=== PATIENT | female | born 1960 | race Caucasian/White ===

== ENCOUNTER 2021-07-15 12:50 | Inpatient (IN) | payer OTHER, BC ==
[2021-07-15] MEDS ORDERED: Ondansetron PF 4 MG/2 ML Vial ONE (13:14)
[2021-07-15] MEDS ORDERED: Morphine 4 MG/ML VIAL ONE (13:14)
[2021-07-15] MEDS ORDERED: Boostrix 0.5 ML (Tdap) VIAL ONE (13:14)
[2021-07-15 13:18] LABS: #Eosinphils 0.1 thou/uL (0.0-0.7); #Lymphocytes 1.3 thou/uL (1.20-3.40); #Monocytes 0.7 thou/uL (0.11-0.59); #Neutrophils 9.7 thou/uL (1.40-6.50); %Basophils 0.3 % (0.0-1.0); %Eosinophils 0.7 % (0.0-10.0); %Lymphocytes 10.9 % (21.0-51.0); %Monocytes 6.3 % (0.0-10.0); %Neutrophils 81.8 % (42.0-75.0); Hemoglobin 11.4 g/dL (12.0-16.0); Mean Corpuscular HGB CONC 33.3 g/dL (32.0-36.0); Mean Corpuscular Hemoglobin 30.7 pg (27.0-31.0); Mean Corpuscular Volume 92.2 fL (78.0-98.0); Mean Platelet Volume 6.4 fL (7.4-10.4); Platelet Count 312 thou/uL (130-400); RBC Distribution Width 12.2 % (11.5-14.5); White Blood Cell (WBC) Count 11.8 thou/uL (4.8-10.8)
[2021-07-15 13:33] LABS: ALT (SGPT) 46 U/L (8-55); AST (SGOT) 57 U/L (5-34); Albumin 3.5 g/dL (3.5-5.0); Alkaline Phosphatase 91 U/L (40-110); Anion Gap 14 mmol/L (10-20); BUN (Urea Nitrogen) 10 mg/dL (9.8-20.1); Bilirubin, Total 0.7 mg/dL (0.2-1.2); CK (CPK) 213 U/L (29-168); Calc. Creatinine Clearance 0 mL/min (70-130); Calcium 8.8 mg/dL (7.8-10.44); Carbon Dioxide 22 mmol/L (22-29); Chloride 100 mmol/L (98-107); Globulin 2.7 g/dL (2.4-3.5); Glucose 168 mg/dL (70-105); Lipase 49 U/L (8-78); Potassium 3.5 mmol/L (3.5-5.1); Protein, Total 6.2 g/dL (6.0-8.3); Sodium 132 mmol/L (136-145)
[2021-07-15] MEDS ORDERED: Lidocaine 1% PF 5 ML VIAL ONE (14:21)
[2021-07-15] MEDS ORDERED: CEFAZOLIN 2 GM VIAL ONE (15:21)
[2021-07-15] MEDS ORDERED: Iopamidol-370 76% 500 ML 1 ML ONE (15:21)
[2021-07-15] MEDS ORDERED: HYDROmorphone 0.5 MG/0.5 ML SYRINGE ONE (15:29)
[2021-07-15] MEDS ORDERED: Ondansetron PF 4 MG/2 ML Vial IVP PRN ×2 (15:30→15:31)
[2021-07-15] MEDS ORDERED: HYDROmorphone 0.5 MG/0.5 ML SYRINGE SLOW IVP SCH (15:30)
[2021-07-15] MEDS ORDERED: Ondansetron ODT 4 MG TAB SL PRN (15:30)
[2021-07-15] MEDS ORDERED: HYDROmorphone 10 mg/100 ml CADD IVPB PRN (15:31)
[2021-07-15] MEDS ORDERED: diphenhydrAMINE 50 MG/ML VIAL IVP PRN (15:31)
[2021-07-15] MEDS ORDERED: Naloxone HCl 0.4 mg/ml Vial IV PRN (15:31)
[2021-07-15] MEDS ORDERED: diphenhydrAMINE 50 MG/ML VIAL IM PRN (15:31)
[2021-07-15] MEDS ORDERED: diphenhydrAMINE 25 MG CAP PO PRN (15:31)
[2021-07-15] MEDS ORDERED: Promethazine HCl 25 MG/ML VIAL IM PRN (15:31)
[2021-07-15] MEDS ORDERED: Ketamine 50 MG/ML (10ML VIAL) ONE (15:39)
[2021-07-15] MEDS ORDERED: Communication Order-Pharmacy FS SCH (15:45)
[2021-07-15] MEDS ORDERED: hydrALAZINE 20 MG/ML VIAL SLOW IVP PRN (15:53)
[2021-07-15] MEDS ORDERED: CEFAZOLIN 2 GM in Sodium Chloride 0.9% 100 ML IVPB SCH (16:45)
[2021-07-15] MEDS ORDERED: Acetaminophen 500 MG TAB PO SCH (18:00)
[2021-07-15] MEDS: Ketorolac Tromethamine 30 MG/ML VIAL IVP SCH (18:24)
[2021-07-15] MEDS: Acetaminophen 500 MG TAB PO SCH (18:26)
[2021-07-15] MEDS: Sodium Chloride 0.9% 1,000 ML IV SCH (19:21)
[2021-07-15] MEDS: Famotidine/PF 20 mg/2ml Vial SLOW IVP SCH (21:21)
[2021-07-16 00:51] LABS: SARS-CoV-2 NAA Rapid Test Not Detected (NotDetected)
[2021-07-16] MEDS: Acetaminophen 500 MG TAB PO SCH ×4 (01:00→21:27)
[2021-07-16] MEDS: Sodium Chloride 0.9% 1,000 ML IV SCH ×3 (01:01→19:10)
[2021-07-16] MEDS: Ketorolac Tromethamine 30 MG/ML VIAL IVP SCH ×4 (01:01→21:27)
[2021-07-16] MEDS: Famotidine/PF 20 mg/2ml Vial SLOW IVP SCH (07:42)
[2021-07-16 07:47] LABS: #Eosinphils 0.1 thou/uL (0.0-0.7); #Monocytes 1.2 thou/uL (0.11-0.59); #Neutrophils 8.5 thou/uL (1.40-6.50); %Basophils 0.2 % (0.0-1.0); %Eosinophils 0.4 % (0.0-10.0); %Monocytes 9.9 % (0.0-10.0); %Neutrophils 72.4 % (42.0-75.0); Hemoglobin 10.4 g/dL (12.0-16.0); Mean Corpuscular HGB CONC 31.4 g/dL (32.0-36.0); Mean Corpuscular Hemoglobin 29.8 pg (27.0-31.0); Mean Corpuscular Volume 95.1 fL (78.0-98.0); Mean Platelet Volume 6.7 fL (7.4-10.4); Platelet Count 368 thou/uL (130-400); RBC Distribution Width 12.3 % (11.5-14.5); Red Blood Cell (RBC) Count 3.47 mill/uL (4.20-5.40); White Blood Cell (WBC) Count 11.7 thou/uL (4.8-10.8)
[2021-07-16] MEDS: Carvedilol 6.25 MG TAB PO SCH ×2 (08:58→21:29)
[2021-07-16] MEDS ORDERED: Non-Formulary Item 1 EACH (Venlafaxine Hcl [Venlafaxine Hcl Er] 150 MG Tab.Er.24) PO SCH (09:00)
[2021-07-16] MEDS ORDERED: Non-Formulary Item 1 EACH (Omeprazole [Omeprazole] 40 MG Capsule.Dr) PO SCH (09:00)
[2021-07-16 09:03] LABS: BUN (Urea Nitrogen) 20 mg/dL (9.8-20.1); Carbon Dioxide 24 mmol/L (22-29)
[2021-07-16] MEDS ORDERED: Sodium Chloride 0.9% 1,000 ML IV SCH (10:00)
[2021-07-16] MEDS ORDERED: traMADol HCl 50 MG TAB PO PRN (10:01)
[2021-07-16 10:34] LABS: Sodium 138 mmol/L (136-145)
[2021-07-16 10:35] LABS: Anion Gap 10 mmol/L (10-20); Chloride 111 mmol/L (98-107); Potassium 2.7 mmol/L (3.5-5.1)
[2021-07-16 10:36] LABS: Calc. Creatinine Clearance 67 mL/min (70-130); Glucose 113 mg/dL (70-105)
[2021-07-16 10:37] LABS: Calcium 6.5 mg/dL (7.8-10.44)
[2021-07-16] MEDS ORDERED: Potassium Phosphate 30 MMOL in Sodium Chloride 0.9% 250 ML 250 ML IVPB SCH (11:00)
[2021-07-16] MEDS: Amlodipine 5 MG TAB PO SCH (11:08)
[2021-07-16] MEDS: Senokot S 8.6-50 MG TAB PO SCH ×2 (11:09→21:29)
[2021-07-16] MEDS: Venlafaxine HCl XR 150 MG CAP PO SCH (11:09)
[2021-07-16] MEDS: Polyethylene Glycol 3350 17 GM Packet PO SCH (11:09)
[2021-07-16 11:33] LABS: Magnesium 1.5 mg/dL (1.6-2.6); Phosphorus 3.9 mg/dL (2.3-4.7)
[2021-07-16] MEDS ORDERED: traMADol HCl 50 MG TAB PO SCH (12:00)
[2021-07-16] MEDS ORDERED: fentaNYL Citrate/PF 100 MCG/2 ML SYRINGE ONE (16:21)
[2021-07-16] MEDS ORDERED: Bupivacaine PF 0.5% 30 ML VIAL ONE (16:25)
[2021-07-16] MEDS ORDERED: EPINEPHrine 1 MG/ML AMP ONE (16:25)
[2021-07-16] MEDS ORDERED: CEFAZOLIN 2 GM VIAL ONE (16:36)
[2021-07-16] MEDS ORDERED: Sodium Chloride 0.9% 100 ML ONE (16:36)
[2021-07-16] MEDS ORDERED: PROPOFOL 200 MG/20 ML VIAL ONE (16:46)
[2021-07-16] MEDS ORDERED: ePHEDrine 50 MG/ML VIAL ONE (16:46)
[2021-07-16] MEDS ORDERED: Dexamethasone 20 MG/5 ML VIAL ONE (16:46)
[2021-07-16] MEDS ORDERED: Ondansetron PF 4 MG/2 ML Vial ONE (16:46)
[2021-07-16] MEDS ORDERED: Calcium Chloride 1 GM/10 ML Abboject SYRINGE ONE (16:46)
[2021-07-16] MEDS ORDERED: Lidocaine 1% PF 5 ML VIAL ONE (16:46)
[2021-07-16] MEDS ORDERED: PHENYLEPHRINE-NS 100 MCG/ML 10 ML SYRINGE ONE ×2 (16:46→19:00)
[2021-07-16] MEDS ORDERED: Rocuronium Bromide 10 MG/ML (10ML VIAL) ONE (16:46)
[2021-07-16] MEDS ORDERED: SUGAMMADEX SODIUM 200 MG/2 ML VIAL ONE (19:00)
[2021-07-16] MEDS ORDERED: Ondansetron HCl/PF 4 MG/2 ML Vial IVP PRN (19:45)
[2021-07-16] MEDS ORDERED: Promethazine HCl 25 MG/ML VIAL IM PRN (19:45)
[2021-07-16] MEDS ORDERED: Promethazine HCl 25 MG/ML VIAL IVPB PRN (19:45)
[2021-07-16] MEDS ORDERED: Fentanyl 100 MCG/2 ML VIAL ONE (20:39)
[2021-07-16] MEDS: traMADol HCl 50 MG TAB PO SCH (21:28)
[2021-07-16] MEDS: Oxybutynin 5 MG TAB PO SCH (21:29)
[2021-07-16] MEDS: Fenofibrate 48 MG TAB PO SCH (21:29)
[2021-07-16] MEDS: CEFAZOLIN 2 GM in Sodium Chloride 0.9% 100 ML IVPB SCH (22:01)
[2021-07-16] MEDS: Morphine 4 MG/ML VIAL SLOW IVP PRN (22:05)
[2021-07-16 22:21] LABS: Anion Gap 13 mmol/L (10-20); BUN (Urea Nitrogen) 21 mg/dL (9.8-20.1); Calc. Creatinine Clearance 91 mL/min (70-130); Calcium 8.8 mg/dL (7.8-10.44); Carbon Dioxide 23 mmol/L (22-29); Chloride 107 mmol/L (98-107); Glucose 156 mg/dL (70-105); Magnesium 1.9 mg/dL (1.6-2.6); Phosphorus 3.7 mg/dL (2.3-4.7); Potassium 3.6 mmol/L (3.5-5.1); Sodium 139 mmol/L (136-145)
[2021-07-17] MEDS: Sodium Chloride 0.9% 1,000 ML IV SCH ×2 (00:30→06:26)
[2021-07-17] MEDS: traMADol HCl 50 MG TAB PO SCH ×4 (00:31→17:51)
[2021-07-17] MEDS: Ketorolac Tromethamine 30 MG/ML VIAL IVP SCH ×4 (00:31→17:51)
[2021-07-17] MEDS: Acetaminophen 500 MG TAB PO SCH ×4 (00:32→17:51)
[2021-07-17] MEDS: Morphine 4 MG/ML VIAL SLOW IVP PRN ×2 (02:29→10:09)
[2021-07-17] MEDS: CEFAZOLIN 2 GM in Sodium Chloride 0.9% 100 ML IVPB SCH ×3 (06:25→21:06)
[2021-07-17 06:54] LABS: #Lymphocytes 1.1 thou/uL (1.20-3.40); #Monocytes 0.6 thou/uL (0.11-0.59); #Neutrophils 6.6 thou/uL (1.40-6.50); %Basophils 0.2 % (0.0-1.0); %Eosinophils 0.1 % (0.0-10.0); %Neutrophils 79.7 % (42.0-75.0); Hemoglobin 8.3 g/dL (12.0-16.0); Mean Corpuscular HGB CONC 32.6 g/dL (32.0-36.0); Mean Corpuscular Hemoglobin 30.9 pg (27.0-31.0); Mean Corpuscular Volume 94.9 fL (78.0-98.0); Mean Platelet Volume 6.6 fL (7.4-10.4); Platelet Count 230 thou/uL (130-400); RBC Distribution Width 12.3 % (11.5-14.5); Red Blood Cell (RBC) Count 2.67 mill/uL (4.20-5.40); White Blood Cell (WBC) Count 8.2 thou/uL (4.8-10.8)
[2021-07-17 07:55] LABS: Anion Gap 12 mmol/L (10-20); BUN (Urea Nitrogen) 13 mg/dL (9.8-20.1); Calc. Creatinine Clearance 128 mL/min (70-130); Calcium 8.7 mg/dL (7.8-10.44); Carbon Dioxide 24 mmol/L (22-29); Chloride 104 mmol/L (98-107); Glucose 124 mg/dL (70-105); Magnesium 1.9 mg/dL (1.6-2.6); Phosphorus 2.5 mg/dL (2.3-4.7); Potassium 3.2 mmol/L (3.5-5.1); Sodium 137 mmol/L (136-145)
[2021-07-17] MEDS ORDERED: Ferrous Sulfate 325 MG TAB PO SCH (08:00)
[2021-07-17] MEDS ORDERED: Aspirin 81 mg Enteric Coated Tablet PO SCH (09:00)
[2021-07-17] MEDS ORDERED: Magnesium Sulfate 3 GM in Sodium Chloride 0.9% 100 ML IVPB SCH (09:00)
[2021-07-17] MEDS ORDERED: Gabapentin 100 MG CAP PO SCH (09:00)
[2021-07-17] MEDS ORDERED: Potassium Phosphate 30 MMOL, Magnesium Sulfate 3 GM in Sodium Chloride 0.9% 250 ML 250 ML IVPB SCH (10:00)
[2021-07-17] MEDS: Amlodipine 5 MG TAB PO SCH (10:07)
[2021-07-17] MEDS: Polyethylene Glycol 3350 17 GM Packet PO SCH (10:07)
[2021-07-17] MEDS: Senokot S 8.6-50 MG TAB PO SCH ×2 (10:08→21:06)
[2021-07-17] MEDS: Ferrous Sulfate 325 MG TAB PO SCH ×2 (10:08→21:05)
[2021-07-17] MEDS: Ascorbic Acid 500 mg Chewable Tablet PO SCH ×2 (10:08→21:05)
[2021-07-17] MEDS: Venlafaxine HCl XR 150 MG CAP PO SCH (10:09)
[2021-07-17] MEDS: Carvedilol 25 MG TAB PO SCH ×2 (10:09→21:05)
[2021-07-17 12:56] VITALS: BMI 28.8
[2021-07-17] MEDS: Oxybutynin 5 MG TAB PO SCH (21:05)
[2021-07-17] MEDS: Gabapentin 300 MG CAP PO SCH (21:05)
[2021-07-17] MEDS: tiZANidine HCl 4 MG TAB PO SCH (21:06)
[2021-07-17] MEDS: Ibuprofen 200 MG TAB PO SCH (21:06)
[2021-07-17] MEDS: Fenofibrate 48 MG TAB PO SCH (21:13)
[2021-07-18] MEDS: traMADol HCl 50 MG TAB PO SCH ×6 (01:10→23:51)
[2021-07-18] MEDS: Acetaminophen 500 MG TAB PO SCH ×6 (01:10→23:50)
[2021-07-18] MEDS: Ibuprofen 200 MG TAB PO SCH ×3 (06:06→21:34)
[2021-07-18 06:20] LABS: #Eosinphils 0.1 thou/uL (0.0-0.7); #Lymphocytes 1.8 thou/uL (1.20-3.40); #Monocytes 0.7 thou/uL (0.11-0.59); #Neutrophils 4.4 thou/uL (1.40-6.50); %Basophils 0.5 % (0.0-1.0); %Eosinophils 1.8 % (0.0-10.0); %Lymphocytes 25.6 % (21.0-51.0); %Monocytes 9.8 % (0.0-10.0); %Neutrophils 62.3 % (42.0-75.0); Hemoglobin 7.5 g/dL (12.0-16.0); Mean Corpuscular HGB CONC 32.1 g/dL (32.0-36.0); Mean Corpuscular Volume 96.4 fL (78.0-98.0); Mean Platelet Volume 6.8 fL (7.4-10.4); Platelet Count 229 thou/uL (130-400); RBC Distribution Width 12.6 % (11.5-14.5); Red Blood Cell (RBC) Count 2.42 mill/uL (4.20-5.40); White Blood Cell (WBC) Count 7.1 thou/uL (4.8-10.8)
[2021-07-18 06:42] LABS: Anion Gap 7 mmol/L (10-20); BUN (Urea Nitrogen) 13 mg/dL (9.8-20.1); Calc. Creatinine Clearance 140 mL/min (70-130); Calcium 8.7 mg/dL (7.8-10.44); Carbon Dioxide 31 mmol/L (22-29); Chloride 104 mmol/L (98-107); Glucose 98 mg/dL (70-105); Magnesium 2.2 mg/dL (1.6-2.6); Potassium 3.6 mmol/L (3.5-5.1); Sodium 138 mmol/L (136-145)
[2021-07-18] MEDS ORDERED: Potassium Phosphate 30 MMOL in Sodium Chloride 0.9% 250 ML 250 ML IVPB SCH (07:30)
[2021-07-18] MEDS: Carvedilol 6.25 MG TAB PO SCH ×2 (08:45→21:36)
[2021-07-18] MEDS: Enoxaparin Sodium 40 MG/0.4 ML SYRINGE SC SCH (08:45)
[2021-07-18] MEDS: Ascorbic Acid 500 mg Chewable Tablet PO SCH ×2 (08:45→21:35)
[2021-07-18] MEDS: Gabapentin 300 MG CAP PO SCH ×2 (08:46→21:34)
[2021-07-18] MEDS: Venlafaxine HCl XR 150 MG CAP PO SCH (08:46)
[2021-07-18] MEDS: Ferrous Sulfate 325 MG TAB PO SCH ×2 (08:46→21:35)
[2021-07-18] MEDS: Senokot S 8.6-50 MG TAB PO SCH ×2 (08:47→21:36)
[2021-07-18] MEDS: Polyethylene Glycol 3350 17 GM Packet PO SCH (08:47)
[2021-07-18] MEDS: tiZANidine HCl 4 MG TAB PO SCH ×2 (08:47→21:36)
[2021-07-18] MEDS: Fenofibrate 48 MG TAB PO SCH (21:34)
[2021-07-18] MEDS: Oxybutynin 5 MG TAB PO SCH (21:35)
[2021-07-18] MEDS: Famotidine 20 MG TAB PO SCH (21:35)
[2021-07-19] MEDS: traMADol HCl 50 MG TAB PO SCH ×4 (05:47→23:54)
[2021-07-19] MEDS: Acetaminophen 500 MG TAB PO SCH ×4 (05:48→23:54)
[2021-07-19] MEDS: Ibuprofen 200 MG TAB PO SCH ×3 (05:48→20:29)
[2021-07-19] MEDS: Ferrous Sulfate 325 MG TAB PO SCH ×2 (08:05→20:30)
[2021-07-19] MEDS: Famotidine 20 MG TAB PO SCH ×2 (08:05→20:30)
[2021-07-19] MEDS: Ascorbic Acid 500 mg Chewable Tablet PO SCH ×2 (08:05→20:30)
[2021-07-19] MEDS: Senokot S 8.6-50 MG TAB PO SCH ×2 (08:05→20:30)
[2021-07-19] MEDS: Carvedilol 6.25 MG TAB PO SCH ×2 (08:05→20:30)
[2021-07-19] MEDS: tiZANidine HCl 4 MG TAB PO SCH ×2 (08:05→20:30)
[2021-07-19] MEDS: Gabapentin 300 MG CAP PO SCH (08:06)
[2021-07-19] MEDS: Polyethylene Glycol 3350 17 GM Packet PO SCH (08:06)
[2021-07-19] MEDS: Enoxaparin Sodium 40 MG/0.4 ML SYRINGE SC SCH (08:06)
[2021-07-19] MEDS: Venlafaxine HCl XR 150 MG CAP PO SCH (08:06)
[2021-07-19] MEDS: Lisinopril 20 MG TAB PO SCH (20:30)
[2021-07-19] MEDS: Fenofibrate 48 MG TAB PO SCH (20:30)
[2021-07-19] MEDS: Oxybutynin 5 MG TAB PO SCH (20:30)
[2021-07-20] MEDS: Acetaminophen 500 MG TAB PO SCH ×3 (05:15→18:56)
[2021-07-20] MEDS: traMADol HCl 50 MG TAB PO SCH ×3 (05:16→18:55)
[2021-07-20] MEDS: Ibuprofen 200 MG TAB PO SCH ×3 (05:16→21:38)
[2021-07-20 06:52] LABS: Hemoglobin 9.1 g/dL (12.0-16.0)
[2021-07-20] MEDS ORDERED: Carvedilol 25 MG TAB PO SCH ×2 (09:00→12:03)
[2021-07-20] MEDS ORDERED: Hydrochlorothiazide 25 MG TAB PO SCH (09:00)
[2021-07-20] MEDS: Enoxaparin Sodium 40 MG/0.4 ML SYRINGE SC SCH (09:23)
[2021-07-20] MEDS: Polyethylene Glycol 3350 17 GM Packet PO SCH (09:23)
[2021-07-20] MEDS: Senokot S 8.6-50 MG TAB PO SCH ×2 (09:24→21:40)
[2021-07-20] MEDS: Famotidine 20 MG TAB PO SCH ×2 (09:24→21:39)
[2021-07-20] MEDS: Amlodipine 5 MG TAB PO SCH (09:24)
[2021-07-20] MEDS: tiZANidine HCl 4 MG TAB PO SCH ×2 (09:24→21:38)
[2021-07-20] MEDS: Venlafaxine HCl XR 150 MG CAP PO SCH (09:24)
[2021-07-20] MEDS: Ascorbic Acid 500 mg Chewable Tablet PO SCH ×2 (09:24→21:39)
[2021-07-20] MEDS: Gabapentin 100 MG CAP PO SCH ×3 (09:25→21:40)
[2021-07-20] MEDS: Lisinopril 20 MG TAB PO SCH (09:26)
[2021-07-20] MEDS: Ferrous Sulfate 325 MG TAB PO SCH ×2 (09:26→21:39)
[2021-07-20] MEDS ORDERED: Carvedilol 3.125 MG TAB PO SCH (12:15)
[2021-07-20] MEDS: Fenofibrate 48 MG TAB PO SCH (21:38)
[2021-07-20] MEDS: Carvedilol 3.125 MG TAB PO SCH (21:39)
[2021-07-20] MEDS: Oxybutynin 5 MG TAB PO SCH (21:40)
[2021-07-21] MEDS: Acetaminophen 500 MG TAB PO SCH ×4 (01:40→17:36)
[2021-07-21] MEDS: traMADol HCl 50 MG TAB PO SCH ×4 (01:41→17:36)
[2021-07-21] MEDS: Amlodipine 5 MG TAB PO SCH (08:20)
[2021-07-21] MEDS: Carvedilol 3.125 MG TAB PO SCH ×2 (08:20→20:10)
[2021-07-21] MEDS: Senokot S 8.6-50 MG TAB PO SCH ×2 (08:20→20:09)
[2021-07-21] MEDS: Ferrous Sulfate 325 MG TAB PO SCH ×2 (08:20→20:10)
[2021-07-21] MEDS: Ascorbic Acid 500 mg Chewable Tablet PO SCH ×2 (08:20→20:09)
[2021-07-21] MEDS: Venlafaxine HCl XR 150 MG CAP PO SCH (08:20)
[2021-07-21] MEDS: Polyethylene Glycol 3350 17 GM Packet PO SCH (08:21)
[2021-07-21] MEDS: Enoxaparin Sodium 40 MG/0.4 ML SYRINGE SC SCH (08:21)
[2021-07-21] MEDS: tiZANidine HCl 4 MG TAB PO SCH ×2 (08:21→20:09)
[2021-07-21] MEDS: Famotidine 20 MG TAB PO SCH (08:21)
[2021-07-21] MEDS: Gabapentin 100 MG CAP PO SCH ×3 (08:22→20:10)
[2021-07-21] MEDS ORDERED: Bacitracin 1 PK TOP PRN (15:57)
[2021-07-21] MEDS: Fenofibrate 48 MG TAB PO SCH (20:10)
[2021-07-21] MEDS: Oxybutynin 5 MG TAB PO SCH (20:11)
[2021-07-22] MEDS: Acetaminophen 500 MG TAB PO SCH ×4 (00:54→17:05)
[2021-07-22] MEDS: traMADol HCl 50 MG TAB PO SCH ×4 (00:55→17:04)
[2021-07-22] MEDS: Carvedilol 3.125 MG TAB PO SCH ×2 (07:56→19:55)
[2021-07-22] MEDS: Enoxaparin Sodium 40 MG/0.4 ML SYRINGE SC SCH (07:56)
[2021-07-22] MEDS: Ascorbic Acid 500 mg Chewable Tablet PO SCH ×2 (07:56→19:51)
[2021-07-22] MEDS: tiZANidine HCl 4 MG TAB PO SCH ×2 (07:56→19:54)
[2021-07-22] MEDS: Senokot S 8.6-50 MG TAB PO SCH ×2 (07:56→19:56)
[2021-07-22] MEDS: Venlafaxine HCl XR 150 MG CAP PO SCH (07:56)
[2021-07-22] MEDS: Gabapentin 100 MG CAP PO SCH (07:56)
[2021-07-22] MEDS: Amlodipine 5 MG TAB PO SCH (07:57)
[2021-07-22] MEDS: Ferrous Sulfate 325 MG TAB PO SCH ×2 (07:57→19:51)
[2021-07-22] MEDS: Polyethylene Glycol 3350 17 GM Packet PO SCH (09:22)
[2021-07-22] MEDS: Ketorolac Tromethamine 30 MG/ML VIAL IVP SCH ×3 (09:56→23:18)
[2021-07-22] MEDS: Oxybutynin 5 MG TAB PO SCH (19:54)
[2021-07-22] MEDS: Pregabalin 50 MG CAP PO SCH (19:54)
[2021-07-22] MEDS: Fenofibrate 48 MG TAB PO SCH (19:54)
[2021-07-23] MEDS: Acetaminophen 500 MG TAB PO SCH ×3 (00:57→11:29)
[2021-07-23] MEDS: traMADol HCl 50 MG TAB PO SCH ×3 (00:58→11:30)
[2021-07-23] MEDS: Ketorolac Tromethamine 30 MG/ML VIAL IVP SCH ×2 (04:25→08:21)
[2021-07-23] MEDS: Senokot S 8.6-50 MG TAB PO SCH (08:15)
[2021-07-23] MEDS: Venlafaxine HCl XR 150 MG CAP PO SCH (08:15)
[2021-07-23] MEDS: tiZANidine HCl 4 MG TAB PO SCH (08:15)
[2021-07-23] MEDS: Ascorbic Acid 500 mg Chewable Tablet PO SCH (08:15)
[2021-07-23] MEDS: Ferrous Sulfate 325 MG TAB PO SCH (08:16)
[2021-07-23] MEDS: Amlodipine 5 MG TAB PO SCH (08:16)
[2021-07-23] MEDS: Carvedilol 3.125 MG TAB PO SCH (08:16)
[2021-07-23] MEDS: Pregabalin 50 MG CAP PO SCH (08:16)
[2021-07-23] MEDS: Enoxaparin Sodium 40 MG/0.4 ML SYRINGE SC SCH (08:17)
[2021-07-23] MEDS: Polyethylene Glycol 3350 17 GM Packet PO SCH (08:28)
[2021-07-23 12:02] VITALS: BP 144/77; TEMP 97.6
== END 2021-07-23 14:58 | DRG 493 ==
LOC: ERS 12:50 → SURG A 15:53
PROVIDERS: ADMIT Physician Assistant Medical; ATTEND Surgery
PROC: 0RSPXZZ Reposition Left Wrist Joint, External Approach (ICD-10-PCS; principal; 2021-07-15)
PROC: 0QSG04Z Reposition Right Tibia with Internal Fixation Device, Open Approach (ICD-10-PCS; 2021-07-16)
PROC: 0PSJ04Z Reposition Left Radius with Internal Fixation Device, Open Approach (ICD-10-PCS; 2021-07-16)
PROC: 0PSL04Z Reposition Left Ulna with Internal Fixation Device, Open Approach (ICD-10-PCS; 2021-07-16)
DX: S52.572A Other intraarticular fracture of lower end of left radius, initial encounter for closed fracture (principal); S12.9XXA Fracture of neck, unspecified, initial encounter; S82.141A Displaced bicondylar fracture of right tibia, initial encounter for closed fracture; S32.020A Wedge compression fracture of second lumbar vertebra, initial encounter for closed fracture; S22.20XA Unspecified fracture of sternum, initial encounter for closed fracture; S32.010A Wedge compression fracture of first lumbar vertebra, initial encounter for closed fracture; S32.030A Wedge compression fracture of third lumbar vertebra, initial encounter for closed fracture; D62 Acute posthemorrhagic anemia; N17.9 Acute kidney failure, unspecified; S52.602A Unspecified fracture of lower end of left ulna, initial encounter for closed fracture; I10 Essential (primary) hypertension; E78.00 Pure hypercholesterolemia, unspecified; F41.9 Anxiety disorder, unspecified; S20.01XA Contusion of right breast, initial encounter; Z90.49 Acquired absence of other specified parts of digestive tract; Z88.5 Allergy status to narcotic agent; Z88.8 Allergy status to other drugs, medicaments and biological substances; Z79.899 Other long term (current) drug therapy; V43.52XA Car driver injured in collision with other type car in traffic accident, initial encounter; Z88.2 Allergy status to sulfonamides
CPT/HCPCS: 25660; 36415; 70450; 71260; 72125; 72170; 74177; 76000; 80048; 80053; 82533; 82550; 83690; 83735; 84100; 84484; 85014; 85018; 85025; 90471; 90715; 93005; 96374; 96375; C1713; C1776; G0390; J0171; J1100; J1170; J1650; J1885; J2270; J2405; J2704; J3010; J3475; J3490; J7050; Q9967; S0020; S0028; U0002; U0003; U0005